=== PATIENT | female | born 1995 | race African-American/Black ===

== ENCOUNTER 2018-09-03 14:35 | Emergency (ER) | payer OTHER ==
[~2018-09-03] VITALS: Ht 160 cm; Wt 56.7 kg
[2018-09-03] MEDS ORDERED: NORFLEX100 MG PO (16:51)
[2018-09-03 17:11] VITALS: BP 104/67
== END 2018-09-03 17:12 | disposition home or self-care (01) ==
LOC: ER 14:35
DX: S39.012A Strain of muscle, fascia and tendon of lower back, initial encounter (principal); S13.4XXA Sprain of ligaments of cervical spine, initial encounter; V89.2XXA Person injured in unspecified motor-vehicle accident, traffic, initial encounter; Y93.89 Activity, other specified; Y92.410 Unspecified street and highway as the place of occurrence of the external cause; Y99.8 Other external cause status

== ENCOUNTER 2019-01-29 16:45 | Emergency (ER) | payer OTHER ==
[~2019-01-29] VITALS: Ht 160 cm; Wt 49.9 kg
[~2019-01-29 16:45] MED LIST: NORFLEX100 MG PO
[2019-01-29 17:13] LABS: URINE BILIRUBIN NEGATIVE (Negative); URINE BLOOD 3+ (Negative); URINE CLARITY CLOUDY; URINE COLOR YELLOW; URINE GLUCOSE-RANDOM* NEGATIVE (Negative); URINE KETONES NEGATIVE (Negative); URINE PROTEIN (DIPSTICK) 2+ (Negative); URINE SPECIFIC GRAVITY 1.025 (1.005-1.035)
[2019-01-29 17:14] LABS: ABSOLUTE NEUTROPHILS 12.5 thou/uL (1.4-8.2); BASOPHILS 0.6 % (0.0-2.0); EOSINOPHILS 0.3 % (0.0-3.0); HEMATOCRIT 38.4 % (37.0-47.0); MCH 29.9 pg (26.0-34.0); MCHC 33.7 g/dL (28.0-37.0); MCV 88.6 fL (80.0-100.0); MONOCYTES 4.4 % (1.0-8.0); PLATELET COUNT 251 thou/uL (150-400); POLYS 80.7 % (36.0-66.0); RBC 4.34 mil/uL (4.20-5.00); RDW 12.9 % (10.5-14.5); WBC 15.5 thou/uL (4.0-11.0)
[2019-01-29 17:17] LABS: URINE LEUKOCYTES-REFLEX 2+ (Negative); URINE NITRITE-REFLEX POSITIVE (Negative)
[2019-01-29 17:20] LABS: SQUAMOUS 0-3 Few /LPF (0-3); URINE RBC 3-10 Few /HPF (0-2); URINE WBC-REFLEX >25 Many /HPF (0-5)
[2019-01-29 17:24] LABS: YEAST-REFLEX Present (None Seen)
[2019-01-29 17:25] LABS: BACTERIA-REFLEX >30 Many /HPF (None Seen); CASTS None Seen /LPF (None Seen); CRYSTALS None Seen /LPF (None Seen)
[2019-01-29 17:26] LABS: CALCIUM 9.3 mg/dL (8.5-10.1); CREATININE 0.7 mg/dL (0.6-1.0); POTASSIUM 3.3 mmol/L (3.5-5.1)
[2019-01-29 17:30] LABS: ALBUMIN 3.3 g/dL (3.4-5.0); TOTAL BILIRUBIN 0.2 mg/dL (<0.1-1.0); TOTAL PROTEIN 7.9 g/dL (6.4-8.2)
[2019-01-29] MEDS ORDERED: BACTRIM DS TAB1 EACH PO (19:06)
[2019-01-29] MEDS ORDERED: PHENAZOPYRIDIN200 M2 PO (19:06)
[2019-01-29] MEDS ORDERED: DIFLUCAN200 MG PO (19:11)
[2019-01-29 19:27] VITALS: BP 111/71
== END 2019-01-29 19:28 | disposition home or self-care (01) ==
LOC: ER 16:45
PROVIDERS: Physician Assistant
DX: N12 Tubulo-interstitial nephritis, not specified as acute or chronic (principal); M54.9 Dorsalgia, unspecified

== ENCOUNTER 2019-06-18 09:26 | Emergency (ER) | payer OTHER ==
[~2019-06-18] VITALS: Ht 160 cm; Wt 59.0 kg
[~2019-06-18 09:26] MED LIST changes: +BACTRIM DS TAB1 EACH PO; +DIFLUCAN200 MG PO; +PHENAZOPYRIDIN200 M2 PO
[2019-06-18] MEDS ORDERED: GUAIFEN-CODEINE10 ML PO (11:20)
[2019-06-18 11:41] VITALS: BP 99/64
== END 2019-06-18 11:42 | disposition home or self-care (01) ==
LOC: ER 09:26
DX: J10.1 Influenza due to other identified influenza virus with other respiratory manifestations (principal)

== ENCOUNTER 2019-11-24 11:34 | Emergency (ER) | payer OTHER ==
[~2019-11-24] VITALS: Ht 160 cm; Wt 53.1 kg
[~2019-11-24 11:34] MED LIST changes: +GUAIFEN-CODEINE10 ML PO
[2019-11-24 12:41] LABS: ABSOLUTE NEUTROPHILS 9.3 thou/uL (1.4-8.2); BASOPHILS 0.3 % (0.0-2.0); EOSINOPHILS 1.4 % (0.0-3.0); HEMATOCRIT 40.9 % (37.0-47.0); LYMPHOCYTES 8.6 % (24.0-44.0); MCH 30.6 pg (26.0-34.0); MCHC 34.2 g/dL (28.0-37.0); MCV 89.5 fL (80.0-100.0); MONOCYTES 4.5 % (1.0-8.0); PLATELET COUNT 230 thou/uL (150-400); POLYS 85.2 % (36.0-66.0); RBC 4.58 mil/uL (4.20-5.00); RDW 12.6 % (10.5-14.5); WBC 10.9 thou/uL (4.0-11.0)
[2019-11-24 12:50] LABS: CALCIUM 8.9 mg/dL (8.5-10.1); CREATININE 0.8 mg/dL (0.6-1.0); POTASSIUM 3.7 mmol/L (3.5-5.1)
[2019-11-24 12:56] LABS: ALBUMIN 3.3 g/dL (3.4-5.0); TOTAL BILIRUBIN 0.4 mg/dL (0.2-1.0); TOTAL PROTEIN 8.1 g/dL (6.4-8.2)
[2019-11-24] MEDS ORDERED: TESSALON PERLE100 MG PO (13:23)
[2019-11-24 13:39] VITALS: BP 115/76
== END 2019-11-24 13:40 | disposition home or self-care (01) ==
LOC: ER 11:34
PROVIDERS: Physician Assistant
DX: R50.9 Fever, unspecified (principal); Z20.828 Contact with and (suspected) exposure to other viral communicable diseases

== ENCOUNTER 2020-05-08 22:55 | Emergency (ER) | payer OTHER ==
[~2020-05-08] VITALS: Ht 160 cm; Wt 45.4 kg
[~2020-05-08 22:55] MED LIST changes: +TESSALON PERLE100 MG PO
[2020-05-09 00:54] LABS: ABSOLUTE NEUTROPHILS 7.4 thou/uL (1.4-8.2); BASOPHILS 0.4 % (0.0-2.0); EOSINOPHILS 1.6 % (0.0-3.0); HEMATOCRIT 41.7 % (37.0-47.0); HEMOGLOBIN 14.1 gm/dL (12.0-15.0); LYMPHOCYTES 22.5 % (24.0-44.0); MCH 30.3 pg (26.0-34.0); MCHC 33.9 g/dL (28.0-37.0); MCV 89.4 fL (80.0-100.0); MONOCYTES 5.1 % (1.0-8.0); PLATELET COUNT 270 thou/uL (150-400); POLYS 70.4 % (36.0-66.0); RBC 4.66 mil/uL (4.20-5.00); RDW 12.7 % (10.5-14.5); WBC 10.5 thou/uL (4.0-11.0)
[2020-05-09 01:04] LABS: CALCIUM 9.5 mg/dL (8.5-10.1); CREATININE 0.8 mg/dL (0.6-1.0); POTASSIUM 3.2 mmol/L (3.5-5.1)
[2020-05-09 01:10] LABS: ALBUMIN 3.6 g/dL (3.4-5.0); TOTAL BILIRUBIN 0.5 mg/dL (0.2-1.0); TOTAL PROTEIN 8.2 g/dL (6.4-8.2)
[2020-05-09 01:26] LABS: AMP/METHAMP Negative (Negative); BARBITURATES Negative (Negative); BENZODIAZEPINES Negative (Negative); COCAINE Negative (Negative); METHADONE Negative (Negative); OPIATES Negative (Negative); PCP Negative (Negative)
--- NOTE | 2020-05-09 15:19 | EKG ---
[address] [address] [place] [address] ELECTROCARDIOGRAM REPORT Name: ANGELO JULIO [id number] Admission: 05/08/20 Attend Phys: Discharge: Date of : [birth year] Report #: [id number] [facility] ED Test Date: 2020-05-08 Test Time: 23:59:56 Pat Name: ANGELO JULIO Department: Room: Gender: F Medical Records Custodian: elsy : 1995 Requested By: Gilberto Doran Order Number: [id number] MD: Oniel Vicente Measurements Intervals [place] Rate: 87 P: 122 CA: 108 QRS: 105 QRSD: 87 T: 125 QT: 336 QTc: 404 Interpretive Statements Right and left arm electrode reversal, interpretation assumes no reversal Sinus rhythm ST elev, probable normal early repol pattern No previous ECG available for comparison Electronically Signed On 05-09-2020 15:19:45 FILM EDITOR SUPERVISOR by Oniel Vicente [email or web address] <ELECTRONICALLY SIGNED> By: Oniel Vicente MD, [facility] 05/09/20 1519 [id number] Oniel Vicente MD, FACC /EPI
[2020-05-09 21:48] VITALS: BP 134/78
== END 2020-05-09 21:49 ==
LOC: ER 22:55
PROVIDERS: Emergency Medicine
DX: R45.851 Suicidal ideations (principal); F32.9 Major depressive disorder, single episode, unspecified; Z20.828 Contact with and (suspected) exposure to other viral communicable diseases